=== PATIENT | male | born 2005 | race Caucasian/White ===

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

== ENCOUNTER 2025-05-09 03:04 | Inpatient (IN) | payer SELFPAY ==
[2025-05-09] VITALS (7 sets, daily range): BP systolic 115–172; BP diastolic 79–106; PULSE 59–130; RESP 14–20; TEMP 36.6–37.1; O2SAT 97–99; BMI 27.2
--- NOTE | 2025-05-09 03:31 | W.ED.PSYCHS ---
HPI - Psych General: Chief Complaint: Psychiatric Symptoms Stated Complaint: MHE SI Time Seen by Provider: 05/09/25 03:25 History of Present Illness: Healthy 19-year-old male whose father in 2021. He has been thinking about this, as it is Father's Day. He is depressed. He told my nursing staff that he does not want to be here anymore. Plan was to hang himself. He denies drug or alcohol use. He has not been ill otherwise. Related Data Home Medications ?Medication ?Instructions ?Recorded ?Confirmed levocetirizine 5 mg tablet (Xyzal) 5 mg PO DAILY 04/02/21 04/02/21 Allergies Allergy/AdvReac Type Severity Reaction Status Date / Time No Known Allergies Allergy Verified 04/02/21 13:35 PFSH ED PFSH: Social History Smoking and tobacco/nicotine status: never used tobacco/nicotine Physical Exam Const: COMMON NORMALS: no acute distress GENERAL APPEARANCE: cooperative; not ill appearing and not frail appearing HENMT: COMMON NORMALS: normocephalic, atraumatic and Normal external nose present HEAD & SCALP: normocephalic and atraumatic FACE & SINUS: normal facial exam and face symmetric NOSE: Normal external nose present Eye: COMMON NORMALS: Equal, round and reactive pupils present and EOMs intact bilaterally PUPIL: Yes Equal, round and reactive pupils present Neck/C-Spine: GENERAL: Yes trachea midline Chest: CHEST: Yes Symmetrical chest wall rise Resp: COMMON NORMALS: normal respiratory effort, No retractions, No use of accessory muscles and clear to auscultation bilaterally AUSCULTATION: clear to auscultation bilaterally Cardio: COMMON NORMALS: regular rhythm RATE: tachycardic RHYTHM: regular rhythm GI: COMMON NORMALS: Normal to inspection, nondistended, normoactive bowel sounds present Extremity: COMMON NORMALS: no pedal edema Neuro: TAVO COMA SCALE: document GCS findings [place] coma scale eye opening: Spontaneous [place] coma scale verbal response: Orientated [place] coma scale motor response: Obey commands [place] coma scale total score: 15 SENSORY EXAM: Yes extremities (intact) Psych: COMMON NORMALS: speech normal SPEECH: Yes normal speech Skin: COMMON NORMALS: no rashes or lesions noted GENERAL SKIN EXAM: no rashes or lesions noted Course Vital Signs: Vital signs: Vital Signs Temperature 98 F 05/09/25 03:17 Pulse Rate 65 05/09/25 04:40 Respiratory Rate 14 05/09/25 04:40 Blood Pressure 138/97 05/09/25 04:40 Pulse Oximetry 98 05/09/25 04:40 Oxygen Delivery Me thod Room Air 05/09/25 04:40 MDM - Psych Medical Decision Making Heart rate is tachycardic on arrival. Improved now. Otherwise vitals are stable. White blood cell count is 13. No left shift. Other laboratory is not remarkable. Medically, he is stable. Affidavit is been written. He will go to neuropsychiatry. Lab Data 05/09/25 03:34 05/09/25 03:34 Laboratory Results WBC 13.30 10^3/uL (4.5-13.0) H 05/09/25 03:34 RBC 5.43 10^6/uL (3.85-5.65) 05/09/25 03:34 Hgb 16.70 g/dL (13.2-15.6) H 05/09/25 03:34 Hct 48.6 % (37-53) 05/09/25 03:34 MCV 89.5 fl (82-101) 05/09/25 03:34 MCH 30.8 pg (27-33) 05/09/25 03:34 MCHC 34.4 g/dL (30-55) 05/09/25 03:34 RDW 12.3 % (12.1-15.1) 05/09/25 03:34 Plt Count 260 10^3/cmm (157-399) 05/09/25 03:34 MPV 10.6 fL (7.4-10.4) H 05/09/25 03:34 Neut % (Auto) 65.8 % 05/09/25 03:34 Lymph % (Auto) 26.8 % 05/09/25 03:34 Scott % (Auto) 5.9 % 05/09/25 03:34 Eos % (Auto) 0.8 % 05/09/25 03:34 Baso % (Auto) 0.5 % 05/09/25 03:34 Neut # (Auto) 8.77 10^3/uL (1.8-8.0) H 05/09/25 03:34 Lymph # (Auto) 3.6 10^3/uL (1.5-6.5) 05/09/25 03:34 Scott # (Auto) 0.8 10^3/uL (0.2-0.9) 05/09/25 03:34 Eos # (Auto) 0.1 10^3/uL (0.0-0.8) 05/09/25 03:34 Baso # (Auto) 0.1 10^3/uL (0.0-0.1) 05/09/25 03:34 Nucleated RBC % (auto) 0 % 05/09/25 03:34 Nucleated RBCs # 0.0 /100WBC 05/09/25 03:34 Sodium 141 mmol/L (136-145) 05/09/25 03:34 Potassium 3.7 mmol/L (3.5-5.1) 05/09/25 03:34 Chloride 105 mmol/L (98-107) 05/09/25 03:34 Carbon Dioxide 22 mmol/L (22-29) 05/09/25 03:34 Anion Gap 17.7 (5-19) 05/09/25 03:34 BUN 8 mg/dL (6-20) 05/09/25 03:34 Creatinine 0.8 mg/dL (0.7-1.2) 05/09/25 03:34 GFR Calculation 123.2 mL/min (90-130) 05/09/25 03:34 Glucose 122 mg/dL (65-115) H 05/09/25 03:34 Calculated Osmolality 292 mOsm/kg (285-295) 05/09/25 03:34 Calcium 9.4 mg/dL (8.5-10.5) 05/09/25 03:34 Total Bilirubin 0.5 mg/dL (0.15-1.2) 05/09/25 03:34 AST 18 U/L (0-40) 05/09/25 03:34 ALT 29 U/L (0-41) 05/09/25 03:34 Alkaline Phosphatase 175 U/L (40-130) H 05/09/25 03:34 Total Protein 7.7 g/dL (6.6-8.7) 05/09/25 03:34 Albumin 4.8 g/dL (3.5-5.2) 05/09/25 03:34 Globulin 2.9 g/dL (1.3-4.6) 05/09/25 03:34 Urine Color Yellow (Yellow) 05/09/25 04:07 Urine Appearance Cloudy (CLEAR) A 05/09/25 04:07 Urine pH 6.0 (5-7) 05/09/25 04:07 Ur Specific [place] 1.019 (1.005-1.030) 05/09/25 04:07 Urine Protein Negative (Negative) 05/09/25 04:07 Urine Glucose (UA) Negative (Normal) 05/09/25 04:07 Urine Ketones Negative (Negative) 05/09/25 04:07 Urine Blood Negative (Negative) 05/09/25 04:07 Urine Nitrate Negative (Negative) 05/09/25 04:07 Urine Bilirubin Negative (Negative) 05/09/25 04:07 Urine Urobilinogen 1.0 mg/dL (Negative) 05/09/25 04:07 Ur Leukocyte Esterase Negative (Negative) 05/09/25 04:07 Urine RBC 0-2 /hpf (0-2) 05/09/25 04:07 Urine WBC 0-5 /hpf (0-5) 05/09/25 04:07 Ur Squamous Epith Cells 0-5 /hpf (0-5) 05/09/25 04:07 Amorphous Sediment Not Reportable 05/09/25 04:07 Urine Bacteria None seen /hpf (NONE) 05/09/25 04:07 Hyaline Casts 0-4 /lpf H 05/09/25 04:07 Salicylates < 0.3 mg/dL (3-10) L 05/09/25 03:34 Urine Opiates Screen Negative ng/mL (Negative) 05/09/25 04:07 Acetaminophen < 5.0 ug/mL (10-30) L 05/09/25 03:34 Ur Barbiturates Screen Negative ng/mL (Negative) 05/09/25 04:07 Ur Phencyclidine Scrn Negative ng/mL (Negative) 05/09/25 04:07 Ur Amphetamines Screen Negative ng/mL (Negative) 05/09/25 04:07 U Benzodiazepines Scrn Negative ng/mL (Negative) 05/09/25 04:07 Urine Cocaine Screen Negative ng/mL (Negative) 05/09/25 04:07 U Marijuana (THC) Screen Negative ng/mL (Negative) 05/09/25 04:07 Ethyl Alcohol < 10 mg/dL (0-10) 05/09/25 03:34 No radiology studies performed this visit Discharge Plan Discharge Patient Disposition: Admitted As Inpatient Clinical Impression: Suicidal ideation Condition: Stable Coding Level of Care Code ED Rehabilitation Inspector for Aileen Ayoub
[2025-05-09 03:44] LABS: Basophils # 0.1 10^3/uL (0.0-0.1); Basophils % 0.5 %; Eosinophils # 0.1 10^3/uL (0.0-0.8); Eosinophils % 0.8 %; Hematocrit 48.6 % (37-53); Lymphocytes # 3.6 10^3/uL (1.5-6.5); Lymphocytes % 26.8 %; Mean Corpuscular HGB Conc 34.4 g/dL (30-55); Mean Corpuscular Hemoglobin 30.8 pg (27-33); Mean Corpuscular Volume 89.5 fl (82-101); Mean Platelet Volume 10.6 fL (7.4-10.4); Monocytes # 0.8 10^3/uL (0.2-0.9); Monocytes % 5.9 %; Neutrophils # 8.77 10^3/uL (1.8-8.0); Neutrophils % 65.8 %; Nucleated Red Blood Cells % 0 %; Platelet Count 260 10^3/cmm (157-399); Red Blood Count 5.43 10^6/uL (3.85-5.65); Red Cell Distribution Width 12.3 % (12.1-15.1)
[2025-05-09 04:10] LABS: Alanine Aminotransferase 29 U/L (0-41); Albumin Level 4.8 g/dL (3.5-5.2); Alkaline Phosphatase 175 U/L (40-130); Anion Gap 17.7 (5-19); Aspartate Amino Transferase 18 U/L (0-40); Blood Urea Nitrogen 8 mg/dL (6-20); Calcium 9.4 mg/dL (8.5-10.5); Carbon Dioxide 22 mmol/L (22-29); Chloride 105 mmol/L (98-107); Creatinine Clr Calc Pharmacy 163.0692; Globulin 2.9 g/dL (1.3-4.6); Glomerular Filtration Rate 123.2 mL/min (90-130); Glucose 122 mg/dL (65-115); Osmolality Calculated 292 mOsm/kg (285-295); Potassium 3.7 mmol/L (3.5-5.1); Sodium 141 mmol/L (136-145); Total Bilirubin 0.5 mg/dL (0.15-1.2); Total Protein 7.7 g/dL (6.6-8.7)
[2025-05-09 04:11] LABS: Acetaminophen < 5.0 ug/mL (10-30); Alcohol Level < 10 mg/dL (0-10); Salicylate < 0.3 mg/dL (3-10)
[2025-05-09 04:16] LABS: Bilirubin Urine Negative (Negative); Blood Urine Negative (Negative); Glucose Urine UA Negative (Normal); Ketones Urine Negative (Negative); Leukocyte Esterase Urine Negative (Negative); Nitrate Urine Negative (Negative); Protein Urine Negative (Negative); Specific Gravity, Urine 1.019 (1.005-1.030); Urine Appearance Cloudy (CLEAR); Urine Color Yellow (Yellow)
[2025-05-09 04:18] LABS: Add Urine Microscopic? YES; Bacteria Urine None Seen /hpf; Hyaline Casts Urine 0-4 /lpf; RBC Urine 0-2 /hpf (0-2); Squamous Epithelial Cell Urine 0-5 /hpf (0-5); WBC Urine 0-5 /hpf (0-5)
[2025-05-09 04:23] LABS: Amphetamines Screen Urine Negative (Negative); Barbiturates Screen Urine Negative (Negative); Benzodiazepines Screen Urine Negative (Negative); Cocaine Screen Urine Negative (Negative); Opiate Screen Urine Negative (Negative); PCP Screen Urine Negative (Negative); THC Screen Urine Negative (Negative)
[2025-05-09] MEDS: nicotine 21 mg Patch 1 PATCH TRANSDERMA (04:29)
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
[2025-05-09] MEDS: nicotine 2 mg Gum BUCCAL (15:45)
[2025-05-09] MEDS: nicotine 4 mg lozenge MUCOUS MEM ×2 (19:50→23:23)
[2025-05-09] MEDS: BuSPIRONE 10 mg Tablet PO (23:32)
[2025-05-10 06:00] VITALS: BP 123/63; PULSE 70; RESP 19; TEMP 36.5; O2SAT 99
[2025-05-10] MEDS: BuSPIRONE 10 mg Tablet PO (08:45)
[2025-05-10] MEDS: nicotine 21 mg Patch 1 PATCH TRANSDERMA (11:58)
[2025-05-10 13:20] VITALS: BP 123/63; PULSE 70; RESP 19; TEMP 36.5; O2SAT 99
== END 2025-05-10 14:41 | disposition home or self-care (01) | DRG 881 ==
LOC: ER 04:41 → NP 05:37
PROVIDERS: Admitting Provider Psychiatry & Neurology Psychiatry; Emergency Provider Emergency Medicine; Visit Provider Psychiatry & Neurology Psychiatry
DX: F32.A Depression, unspecified (principal); R45.851 Suicidal ideations; F41.1 Generalized anxiety disorder; Z63.4 Disappearance and death of family member
CPT/HCPCS: 36415; 80053; 80306; 80307; 81001; 85025; 97150; 97165; 99285; J9999